=== PATIENT | male | born 1950 ===

== ENCOUNTER 2021-03-20 06:57 | Day surgery (SDC) | payer OTHER ==
[2021-03-20] MEDS ORDERED: ASACOL HD800 MG PO (10:44)
== END 2021-03-20 12:00 | disposition home or self-care (01) ==
LOC: AMB-ENDOS 06:57
PROVIDERS: ATTEND Surgery
DX: K62.89 Other specified diseases of anus and rectum (principal); Z20.822 Contact with and (suspected) exposure to COVID-19